=== PATIENT | male | born 1955 | race Caucasian/White ===

== ENCOUNTER 2018-10-11 14:46 | Inpatient (IN) | payer MEDICAID ==
[~2018-10-11] VITALS: Ht 195.5 cm; Wt 115.7 kg
--- NOTE | ~2018-10-11 | PR ---
[place], [place] PROGRESS NOTE NAME: EVITA SERVIN UNIT #: [id number] ROOM: 309 DOCTOR: CIELO SUÁREZ DPM BIRTHDATE: [birth year] DOS: 10/16/2018 SUBJECTIVE: This patient is seen for followup of an ulceration dorsal medial left arch. The patient has a history of chronic foot ulcers, history of surgery on his feet because of infections and osteomyelitis. Denies any pain at this time, the patient is diabetic. OBJECTIVE: NEUROLOGIC: Neurologic status is diminished, arterial status minimally decreased. EXTREMITIES: There is a large wound noted dorsal medial aspect of the left mid foot measuring about 6 x 3 cm with minimal maceration to the edges. No purulent drainage or malodor. Chronic edema is seen, but no active signs of infection. ASSESSMENT: Diabetic ulcer, left foot, diabetic neuropathy. PLAN: Evaluation and management. Continue offloading. Continue with daily wound care. Wound is not clinically infected at this time. Continue to offload. Continue to follow the patient while he is in house. CIELO SUÁREZ DPM CM:PNYVONNE [id number] CIELO SUÁREZ DPM 10/16/18 1446 interface
--- NOTE | ~2018-10-11 | PR ---
[place], [place] PROGRESS NOTE NAME: EVITA SERVIN UNIT #: [id number] ROOM: 309 DOCTOR: MAGDA NAJERA MD BIRTHDATE: [birth year] DOS: 10/14/2018 CHIEF COMPLAINT: "Oh, I slept well, I just need to find out about my living situation." SUMMARY OF THE VISIT: The patient was interviewed in the dining area. He had already completed his breakfast and was sitting there, watching television. He stopped and engaged in conversation with me. He reported that he slept very well, probably the best he has in a long time. He reports no side effects from the Anafranil. He did request that I do not increase it any further as he wants to see how this dose is working for him. He is concerned about his return to [facility] as to how long he will be there before they work to get him into his own home. He would like ultimately to have that as his goal and I discussed further with him the fact that we will send Sales Operations Associate in to talk to him about this to give him the accurate answers. MENTAL STATUS: He is alert and oriented. Mood does seem to be strongly trending towards euthymia. Affect is more appropriate. There is no rk or hypomania. There are no overt auditory or visual hallucinations. No delusions, no paranoia. Short term, intermediate and long-term memories are intact. PLAN: I will maintain his current psychotropic regimen, engage in individual and myers milieu activity, returning to the least restrictive environment when psychiatrically stable. MAGDA NAJERA MD CM:PNTRANS [phone] MAGDA NAJERA MD 10/14/18 172 interface
--- NOTE | ~2018-10-11 | PR ---
[place], [place] PROGRESS NOTE NAME: EVITA SERVIN UNIT #: [id number] ROOM: 309 DOCTOR: MAGDA SUN MD BIRTHDATE: [birth year] DOS: 10/13/2018 CHIEF COMPLAINT: "I slept really well Dr. Sun, I think the medicine already helped my sleep." SUMMARY OF THE VISIT: The patient was interviewed in the dining area. He engaged readily in conversation. He still remains very depressed and anxious with a lot of perseveration. However, on a positive note, he did report that the change to the clomipramine already seen to aid his sleep. He awoke this morning feeling refreshed without the hangover or somnolence. He did not notice any dry mouth, dizziness or any other side effects. MENTAL STATUS: He remains alert and oriented with some time gaps. Mood is overwhelmingly depressed. Affect is flat, blunted, and constricted. There was no hypomania or rk. There were no overt auditory or visual hallucinations. No delusions, no paranoia. Short term memory had mild gaps, otherwise he was intact. PLAN: I will increase the clomipramine from 50 to 100 mg at bedtime. Continue to monitor for risks, benefits. Continue to engage in individual and myers milieu activity, returning to the least restrictive environment when psychiatrically stable. MAGDA SUN MD CM:PNTRANS [phone] MAGDA SUN MD 10/13/18 1236 interface
--- NOTE | ~2018-10-11 | PR ---
[place], [place] PROGRESS NOTE NAME: EVITA SERVIN UNIT #: [id number] ROOM: 309 DOCTOR: MAGDA SUN MD BIRTHDATE: [birth year] DOS: 10/17/2018 CHIEF COMPLAINT: "I think I am really good Dr. Sun, I am ready to go soon." SUMMARY OF THE VISIT: The patient was interviewed as he was sitting in the dining area with a female peer. He engaged readily in conversation. He was bright and spontaneous. He reported yet again that he slept through the night and that this has been consistent since the medication changes were made. He does seem to be much more pleasant and positive. He is less perseverative and less anxious. He convincingly denies medication side effects. MENTAL STATUS: He is alert and oriented to person, place and time. Mood does seem to be solidly trending towards euthymia. Affect is much more appropriate. There is no rk, hypomania or psychosis. There is no tardive dyskinesia, extrapyramidal symptoms, sedation or somnolence. PLAN: I will maintain the current psychotropic regimen, continue to engage in individual and myers milieu activity, returning then to the least restrictive environment when psychiatrically stable. MAGDA SUN MD CM:PNTRANS [phone] MAGDA SUN MD 10/17/18 1032 interface
--- NOTE | ~2018-10-11 | DS ---
[place], [place] DISCHARGE SUMMARY NAME: EVITA SERVIN UNIT #: [id number] ROOM: 309 DOCTOR: MAGDA NAJERA MD BIRTHDATE: [birth year] DOS: 10/18/2018 CHIEF COMPLAINT: "Oh, I have been so depressed, I can't go on like this." HISTORY OF PRESENT ILLNESS: This is a 63-year-old white male known to me from previous [facility] admissions as well as his stay at [facility] and now most recently [facility]. The patient presents now with ongoing depression, worsening on a daily basis over the last month. He endorses significant neurovegetative symptoms that include poor sleep with difficulty falling asleep, sleep continuity disturbance, spooler awakening, anergia, anhedonia, hopeless, helpless feelings, crying spells, and inability to cope. He has had fleeting suicidal thoughts and feels his life is not worth living if he has to continue like this. He also has significant obsessive compulsive issues and tends to ruminate on things and his anxiety level then becomes debilitating. He is admitted now to rule out organic factors to attempt to stabilize on medication, to engage in individual and myers milieu activity, returning then to the least restrictive environment when psychiatrically stable. SUMMARY OF THE VISIT: The patient was admitted where he was continued on Klonopin, but I augmented this with Vistaril 50 mg 3 times a day as a nonaddicting antianxiety to help decrease his rumination. Abilify was discontinued due to ineffectiveness and he was started on Zyprexa 2.5 mg in the morning and 5 mg at night. He has Luvox likewise was discontinued due to ineffectiveness and he was started on clomipramine also known as Anafranil 50 mg at bedtime and subsequently increased to 100 mg at bedtime. With these changes, the patient noted a very rapid and gradual improvement to the point where he was sleeping well, eating well. His anxiety and rumination dissipated. He was no longer obsessive. He was able to attend to his ADLs and attend to groups well. His suicidal thoughts dissipated as well and he voiced positive plans for the future and was ready and willing to go back to [facility] to continue his care and attempt to reintegrate into the community. MENTAL STATUS AT DISCHARGE: The patient is alert and oriented to person, place and time. Mood does seem to be strongly trending towards euthymia. Affect is more appropriate. There is no rk or hypomania. There is no gross psychosis. Short, intermediate, and long-term memory is intact. DIAGNOSES UPON DISCHARGE: Major depression, recurrent, severe; obsessive compulsive disorder and dysthymic disorder. DISPOSITION: All of his prescriptions have been printed and will be sent with him. He will be readmitted to [facility] in [place], [place]. I will be the treating psychiatrist of record. At the time of discharge, there were no acute medical or acute psychiatric issues. [place], [place] DISCHARGE SUMMARY NAME: EVITA SERVIN UNIT #: [id number] ROOM: 309 DOCTOR: MAGDA NAJERA MD BIRTHDATE: [birth year] MAGDA NAJERA MD CM:DISCHARG [phone] MAGDA NAJERA MD 10/19/18 0020 interface
--- NOTE | ~2018-10-11 | WRIGHTHP ---
[place], [place] PATIENT HISTORY AND PHYSICAL EXAM [id number] UN[facility] #: [id number] ROOM: 309 DOCTOR: MAGDA NAJERA MD BIRTHDATE: [birth year] DOS: 10/12/2018 INITIAL PSYCHIATRIC EVALUATION CHIEF COMPLAINT: "Oh, I have been just so depressed, I can't go on like this." HISTORY OF PRESENT ILLNESS: This is a 63-year-old white male known to me from previous [facility] admissions as well as his stay at [facility] and now most recently [facility] in [place], [place]. The patient reports ongoing depression that has been worsening on a daily basis over the last month. He endorses significant neurovegetative symptoms that include poor sleep with difficulty falling asleep, sleep continuity disturbance, milk powder grinder awakening, anergia, anhedonia, hopeless, helpless feelings, crying spells, and inability to cope. He has had fleeting suicidal thoughts and has thought life is not worth living and that if this is how he has to live. He also has significant obsessive compulsive issues and tends to ruminate on things and be perseverative. His anxiety is free floating all during the day and is also quite debilitating. He is admitted now to rule out organic factors to stabilize on medication and to engage in individual and myers milieu activity. PAST MEDICAL HISTORY: Remarkable for atrial fibrillation, chronic kidney disease stage 3, major depression, recurrent, DVT, hypertension, GERD, hyperlipidemia, obesity, stasis dermatitis, vitamin D deficiency and nicotine abuse. The patient is a former smoker, having quit just in 08/2018. He does not use illicit drugs or drink alcohol. ALLERGIES: He lists no known allergies. STRENGTHS: Good verbal skills, ambulatory. WEAKNESSES: Chronic psychiatric issues, poor coping skills. MENTAL STATUS: He is alert and oriented to person, place, and time. Mood is overwhelmingly depressed. Affect is flat, blunted, and constricted with anxious overtones. There is no hypomania or rk. There is no gross psychosis. Short term, intermediate, and long-term memory for the most part are intact. DIAGNOSIS: Major depression, recurrent, severe; dysthymic disorder and obsessive compulsive disorder. PLAN: I have already augmented his Klonopin with Vistaril 50 mg 3 times a day. I will now discontinue his Luvox due to ineffectiveness and begin him on and off Anafrail 50 mg at bedtime and plan to rapidly titrate this up as needed and as tolerated. I have switched the Abilify to Zyprexa, believing that this would augment his antidepressant regimen more and improve sleep and appetite. I will utilize Rozerem short-term as a p.r.n. for sleep. We will engage him in individual and myers milieu activity, returning back to [facility] when medically and psychiatrically stable. [place], [place] PATIENT HISTORY AND PHYSICAL EXAM NAME: EVITA SERVIN UNIT #: [id number] ROOM: 309 DOCTOR: MAGDA NAJERA MD BIRTHDATE: [birth year] MAGDA NAJERA MD CM:HISPHYS:PATIENT HISTORY AND PHYSICAL EXAMINATION [id number] MAGDA NAJERA MD 11/15/18 1057 interface
--- NOTE | ~2018-10-11 | PR ---
[place], [place] PROGRESS NOTE NAME: EVITA SERVIN UNIT #: [id number] ROOM: 309 DOCTOR: MAGDA NAJERA MD BIRTHDATE: [birth year] DOS: 10/15/2018 CHIEF COMPLAINT: "I am feeling so much better, let's not tweak anything." SUMMARY OF THE VISIT: The patient was interviewed in the dining area where he was sitting with many female peers. He engaged readily in conversation, reporting that he slept well enough, and felt rested this morning. He ate a good breakfast and overall, his mood does seem to be more euthymic and he is much more positive. He reports no side effects from the medicines and feels that the current regimen is working well. He only requested that I start him back on a multivitamin with minerals, which he took well in the long-term care facility. MENTAL STATUS: He is alert and oriented with some time gaps. Mood does seem to be strongly trending towards euthymia. Affect is more appropriate. There is no rk, hypomania, or psychosis. Short-term memory, long-term memory, and intermediate memory are intact. PLAN: I will maintain his current psychotropic regimen. I will go ahead and add a multivitamin with minerals daily, engage in individual and myers milieu activities, returning to the least restrictive environment when psychiatrically stable. MAGDA NAJERA MD CM:PNTRANS [phone] MAGDA NAJERA MD 10/16/18 0350 interface
--- NOTE | ~2018-10-11 | PR ---
[place], [place] PROGRESS NOTE NAME: EVITA SERVIN UNIT #: [id number] ROOM: 309 DOCTOR: MAGDA NAJERA MD BIRTHDATE: [birth year] DOS: 10/16/2018 CHIEF COMPLAINT: "I just need a little rest. I think I'm doing better doc." SUMMARY OF THE VISIT: The patient was interviewed as he was resting quietly in bed. He engaged readily in conversation, reporting that he is sleeping better, eating better, and overall is feeling much better than when he came in. He convincingly denies medication side effects and once again requested that I leave his medicines as they are as he believes this dose is working for him and he does not need any more medicine than this. MENTAL STATUS: He is alert and oriented to person, place and time. Mood does seem to be strongly trending towards euthymia. Affect is more appropriate. There is no rk or hypomania. There is no gross psychosis. Short, intermediate, and long-term memory are intact. PLAN: I will maintain his current psychotropic regimen, engage in individual and myers milieu activity, returning to the least restrictive environment when psychiatrically stable. MAGDA NAJERA MD CM:PNTRANS [phone] MAGDA NAJERA MD 10/16/18 1400 interface
[~2018-10-11 14:46] MED LIST: BANOPHEN ANTI-I28 GM T; CLONAZEPAM1 MG PO; COUMADIN4 M2 PO; Coumadin2.5 MG PO; DILTIAZEM HYDRO60 MG PO; ENOXAPARIN120 MG/0.2 SC; FLUVOXAMINE MA150 M1 PO; FLUVOXAMINE50 MG PO; GLYBURIDE5 MG PO; HUMALOG100 UNIT/2 SQ; HYDROCHLOROTHIA25 M1 PO; HYDROXYZINE PAM25 M1 PO; Ipratropium Brom3 ML INH; JANUVIA100 MG PO; KLONOPIN1 M1 PO; LISINOPRIL30 MG PO; LOPRESSOR100 M1 PO; OHM ALLERGY REL10 MG PO; OLANZAPINE5 MG PO; PANTOPRAZOLE SO40 MG PO; SEROQUEL50 MG PO; THERA TABLET400 MCG PO; VISTARIL25 MG PO; ZOCOR20 MG PO; ZOFRAN ODT4 MG PO; ZYPREXA2.5 MG PO
[2018-10-11] MEDS ORDERED: ABILIFY5 MG PO (14:49)
[2018-10-11] MEDS ORDERED: VITAMIN C500 M8 PO (14:52)
[2018-10-11] MEDS ORDERED: COUMADIN6 M2 PO (14:55)
[2018-10-11] MEDS ORDERED: FLUVOXAMINE MA100 MG PO (14:58)
[2018-10-11] MEDS ORDERED: PROBIOTIC250 MG PO (15:01)
[2018-10-11] MEDS ORDERED: KLONOPIN0.5 MG PO (15:02)
[2018-10-11] MEDS ORDERED: APAP500 MG PO (15:04)
[2018-10-11] MEDS ORDERED: KLONOPIN1 M1 PO (15:05)
[2018-10-11] MEDS ORDERED: HYDROCODONE-AC1 EAC1 PO (15:06)
[2018-10-11] MEDS ORDERED: HYDROXYZINE HCL25 MG PO (15:07)
[2018-10-11] MEDS ORDERED: NYSTATIN T (15:09)
[2018-10-11] MEDS ORDERED: AQUAPHOR T (15:09)
[2018-10-11] MEDS ORDERED: LANTUS SOL100 UNIT/1 SC (15:11)
[2018-10-11] MEDS ORDERED: NICODERM CQ1 EAC1 T (15:13)
[2018-10-11] MEDS ORDERED: THERA-M1 EACH PO (15:15)
[2018-10-11] MEDS ORDERED: VITAMIN D22000 UNIT PO (15:16)
[2018-10-11 17:17] VITALS: BP 142/79
[2018-10-11 17:54] VITALS: BP 142/79
--- NOTE | 2018-10-11 18:19 | NUR ---
NURSING [facility]ORER [facility] [employer] NOTIFIED OF WOUND TO LEFT FOOT TO BE STAGED, STAGE 2. WOUND TO LEFT FOOT PHOTOGRAPHED, WOUND SCREEN COMPLETED, NUTRITION CONSULT PUT IN, TURN/REPOSITION COMPLETED, WOUND CARE CONSULT, REMA SCALE COMPLETE DR. JAMESON NOTIFIED OF NEW ADMISSION AND STAGE 2 WOUND TO LEFT FOOT. PER DR. JAMESON PUT CONSULT UNDER DR. ESCOBEDO. NO FURTHER ORDERS AT THIS TIME.
--- NOTE | 2018-10-11 18:23 | NUR ---
EVITA SERVIN a 63 year old M admitted via wheel chair from the [facility] as a voluntary admission. Arrived on unit at 1713 . ALLERGIES: NKA . Vital signs are: 98.0-92-18 142/79. The client signed the following forms with stated understanding: Authorization For The Release of Medical Information, Clothing List, Consent to Voluntary Admission and Hospitalization, Consent and Release Forms/Receipt of Rights, Acknowledgement of Advance Directive Information, Behavioral Health Consent Form, and Informed Consent of Medications. Admitted under the services of Dr. REINALDO AVINA,[facility]. A search was conducted and hazardous articles were removed. Client was oriented to the unit. JUS SERRATO PT ALERT TO PERSON, PLACE AND TIME. PT DEPRESSED AND TEARFUL AT TIMES. GOAL DIRECTED FOR TREATMENT. PT UP TO WHEELCHAIR D/T FOOT WOUND STATES "I DONT KNOW IF I'M SUPPOSED TO WALK ON IT BUT I DO SOMETIMES". PT CONTINENT OF BOWEL AND BLADDER. SOCIAL WORKJER UPDATED AT 5681 RE:PT ADMISSION AND VOLUNTARY STATUS.
[2018-10-11 20:00] VITALS: BP 117/76
--- NOTE | 2018-10-12 04:06 | NUR ---
24 HR chart check completed.
--- NOTE | 2018-10-12 05:45 | NUR ---
PT SLEPT APPROXIMATELY 7 HOURS THIS SHIFT. MEDICATION COMPLIANT. TEARFUL WHILE TALKING TO DR CAUSEY. NO SI/HI. A&O X3. DEPRESSED MOOD. Q15 MINUTE SAFETY CHECKS MAINTAINED.
--- NOTE | 2018-10-12 06:34 | NUR ---
EVITA SERVIN [id number] Please refer to the physician's history and physical for past medical history, comorbid conditions, and allergies. Diagnosis: MAJOR DEPRESSION RECURRENT W/ PSYCHOTIC FEATURES Darin Score: 19,LOW OR NO RISK WOUND DESCRIPTIONS: Location of the wound: left top of foot Thickness: Full Size: 7.0cm x 4.2cm x <0.1cm Tunneling: none Undermining: none Sinus Tract: none Presence of Exudate: Serosanguineous Amount: Moderate Color: Yellow, red Odor: Foul Periwound Skin Appearance: Erythema, macerated Wound edges: approximated Pain (associated with wound): tender to touch How does patient state this happened? pt stated he has had this for 6 months and follows with the foot doctor at the assisted. Patient has intact scar intact to left buttocks. No open areas noted. No drainage noted. Patient stated that he has had that for a while and it has been healed. Patient has multiple partial thickness areas to BLE's patient states he scratches them due to them being itchy. No drainage noted at time of assessment. Surface the patient is resting on: Proform SKIN PREVENTION RECOMMENDATION: 1. Pressure redistribution support surface as appropriate 2. Elevate heels 3. Remove boots/TEDS every shift and reapply 4. Head of bed 30 degrees as tolerated 5. Assess nutrition and hydration 6. Manage moisture 7. Avoid the use of containment devices while in bed 8. Use absorptive products on surfaces limit layers of linens on bed 9. Turn and reposition every 1-2 hours in bed and every 1 hour in chair as tolerated 10. Weight shifts every 15 minutes while up in chair 11. Offloading with pillows or device to keep heels elevated off bed 12. Monitor skin at least every shift 13. Inspect under medical devices twice a day WOUND TREATMENT RECOMMENDATIONS: Cleanse bilateral lower extremity with soap and water and apply aquaphor ointment daily. Cleanse left buttocks with soap and water and apply hydraguard every shift and prn. Full thickness guidelines: Cleanse left top of foot with nss and apply sureprep around the wound therahoney to wound bed and cover with maxorb then 4x4 then lightly wrap with rolled gauze daily and prn for soiling. Venous and arterial studies due to non healing wound of left foot. Left foot x-ray due to non-healing wound to left foot. Consult podiatry due to non-healing wound to top of left foot and possible debridement. Wheelchair cushion when oob. Heel raiser pro boots while in bed.
--- NOTE | 2018-10-12 06:34 | NUR ---
DURING ASSESSMENT WITH WOUND NURSEHOMER, A SCAR WAS NOTED TO LEFT BUTTOCKS.
[2018-10-12 06:47] LABS: BASO # 0.1 10*3/uL (0.0-0.1); BASO % 0.8 % (0.0-1.0); EOS # 0.3 10*3/uL (0.0-0.4); EOS % 3.2 % (1.0-4.0); HEMATOCRIT 38.2 % (42.0-52.0); HEMOGLOBIN 11.8 g/dl (14.0-18.0); LYMPH # 2.2 10*3/uL (1.3-4.4); LYMPH % 23.7 % (27.0-41.0); MEAN CELL VOLUME 72.5 fl (80.0-94.0); MEAN CORPUSCULAR HGB 22.4 pg (27.0-31.0); MEAN CORPUSCULAR HGB CONC 30.9 g/dl (33.0-37.0); MEAN PLATELET VOLUME 9.3 fl (9.6-12.3); MONO # 0.8 10*3/uL (0.1-1.0); MONO % 9.2 % (3.0-9.0); NEUT # 5.7 10*3/uL (2.3-7.9); NEUT % 62.8 % (47.0-73.0); PLATELET COUNT AUTOMATED 294 10*3/uL (130-400); RED BLOOD COUNT 5.27 10*6/uL (4.50-5.90); RED CELL DISTRI WIDTH 20.8 % (0-14.5); WHITE BLOOD COUNT 9.1 10*3/uL (4.8-10.8)
[2018-10-12 06:59] LABS: INTERNATIONAL NORM RATIO 1.8 (2.0-3.5)
[2018-10-12 07:03] LABS: ALBUMIN 2.6 gm/dl (3.1-4.5); CHLORIDE 107 mmol/L (98-107); POTASSIUM 4.3 mmol/L (3.5-5.1); SODIUM 140 mmol/L (136-145)
[2018-10-12 07:18] LABS: ALKALINE PHOSPHATASE 99 U/L (45-117); BUN 31 mg/dl (7-24); CHOLESTEROL 219 mg/dL (<200); CREATININE 1.43 mg/dL (0.70-1.30); HDL CHOLESTEROL 31 mg/dl (40-60); SGOT/AST 18 IU/L (3-35); SGPT/ALT 28 U/L (12-78); TOTAL PROTEIN 6.6 gm/dL (6.4-8.2); TRIGLYCERIDES 910 mg/dl (<150)
[2018-10-12 07:37] VITALS: BP 116/71
--- NOTE | 2018-10-12 08:15 | NUR ---
Treatment Plan meeting with Dr. Sun, RN, AT, SW and Audit Practice Intern. Plan for discharge Next week, Possible or Tuesday. Pt. is current Resident of [facility]. Will reach out to facility to discuss discharge Plans.
--- NOTE | 2018-10-12 08:44 | NUR ---
Dr. Staley notified of wound care recommendations.
[2018-10-12 09:00] LABS: VITAMIN D, 25-HYDROXY 16.9 ng/mL (30-100)
--- NOTE | 2018-10-12 09:15 | NUR ---
PHYSICAL THERAPY PAtient evaluated on 3, full evaluation to follow. Continue with PT as per plan of care with fall, left foot wound, ambulate with left foot boot and decreased safety awareness precautions. Multiple loses of balance with evaluation especially with turns and changes in direction, staff advised to (A) with mobility at this time. Return to LTC with PT as prior. Patient is moderate compleity via chart review, tests and evaluation: [id number]. Thank you for this referral. Geraldine Nielsen,PT
--- NOTE | 2018-10-12 09:25 | NUR ---
Occupational Therapy evaluation completed on 3 with full eval to follow. Patient is low complexity level 02105 via chart review, testing and evaluation. Recommend no further OT as patient is able to perform self care but needs improved balance with ww. PT to address standing balance and ww safety. Thank you. Emmanuelle Tejeda OTR/L
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
--- NOTE | 2018-10-12 12:00 | NUR ---
ASSEMBLER BODY AND RESIDENT ON UNIT AT THIS TIME TO ASSESS WOUND TO TOP LEFT FOOT AND APPLY DRESSING.
--- NOTE | 2018-10-12 12:11 | NUR ---
Collaborated with tx team and later senior program planner regarding plan for pt to receive therapy weekly once back in facility. Pt has been hospitalized 3 times in last 32 days since he has been at [facility]. Provided support and encouragement to pt who was tearful at times. Per pt request, [place]-pt old neighbor was notified of pts admission. Pt also expressed his feelings. PSA completed. Pt said he felt reassured about getting counseling once he returns on a regular basis. Pt stated he misses his home and dog and wants to be able to go back. Seems somewhat unrealistic upon discussion with senior program planner who heard from DON though.
--- NOTE | 2018-10-12 13:00 | NUR ---
PT IS ALERT. ORIENTED TO PERSON, PLACE, AND TIME. PT ST MEMORY DEFICITS APPARENT PT REPEATEDLY ASKS WHAT THIS NURSE'S NAME IS. PT IS UNSTEADY ON HIS FEET. PT PROVIDED WITH VERBAL REORIENTATION. PHYSICAL THERAPY ON UNIT TO ASSESS PT. PT STATES "OH YEAH, I REMEMBER NOW" AND PROVIDED VERBAL CONTEXT OF PREVIOUS REORIENTATION. PHYSICAL THERAPY STATES THAT PT IS UNSTEADY WITH CHANGES OF DIRECTION AND TURNING. PT ENCOURAGED TO USE WHEELCHAIR FOR AWHILE, PT AGREEABLE. PLAN TO CONTINUE TO REORIENT PT NEEDED. PLAN TO MAINTAIN FALLING STAR PROGRAM FOR SAFETY. ENCOURAGE CONTINUED MEDICATION COMPLIANCE.
[2018-10-12 13:07] LABS: BILIRUBIN NEGATIVE (NEGATIVE); BLOOD 2+ (NEGATIVE); CLARITY CLEAR (CLEAR); COLOR YELLOW (YELLOW); GLUCOSE TRACE (NEGATIVE); KETONE NEGATIVE (NEGATIVE); LEUKO ESTERASE NEGATIVE (NEGATIVE); NITRITE NEGATIVE (NEGATIVE); SPECIFIC GRAVITY 1.025 (1.005-1.030); UROBILINOGEN 0.2 E.U./dl (0.2-1.0)
--- NOTE | 2018-10-12 13:08 | NUR ---
AM GROUP/EXERCISE AND PARACHUTE PT ATTENDED AND PARTICIPATED IN ALL GROUP ACTIVITIES. PT EXPRESSED NO AGITATION OR DEPRESSIVE IDEATIONS DURING GROUP. PT WAS COOPERATIVE AND LAUGHING DURING GROUP.
[2018-10-12 13:24] LABS: BACTERIA 1+; RBC 41-50 rbc/hpf (0-2)
--- NOTE | 2018-10-12 13:36 | NUR ---
PT REQUESTING PRN PAIN MEDICATION AT THIS TIME FOR PAIN TO LEFT FOOT RATED "8/10". PT GIVEN NORCO PER ORDER AT THIS TIME.
--- NOTE | 2018-10-12 14:43 | NUR ---
case management submitted clinical on line, reference number is [id number],
--- NOTE | 2018-10-12 15:47 | NUR ---
PM GROUP/MEDITATION AND THE 5 SENSES PT ATTENDED AND PARTICIPATED IN ALL GROUP ACTIVITIES UNTIL HE WAS REMOVED FROM THE ROOM TO SEE A DR AND NOT RETURNED. PT EXHIBITED NO DEPRESSIVE OR AGITATED SYMPTOMS DURING GROUP
--- NOTE | 2018-10-12 16:30 | NUR ---
PT REPORTS NORCO ONLY SOMEWHAT EFFECTIVE. PT ENCOURAGED TO TAKE TAKE WEIGHT OFF FOOT AND REST IT.
--- NOTE | 2018-10-12 19:51 | NUR ---
24 HR chart check completed.
[2018-10-12 20:00] VITALS: BP 101/66
[2018-10-12 20:29] VITALS: BP 112/66
--- NOTE | 2018-10-12 21:20 | NUR ---
PT C/O FOOT PAIN WITH A PAIN SCORE OF 7/10. REQUESTED PRN PAIN PILL. PRN NORCO GIVEN AT THIS TIME. WILL MONITOR PAIN.
--- NOTE | 2018-10-12 22:10 | NUR ---
prn norco effective. pt quietly resting in bed. will continue to monitor effectiveness of medication.
--- NOTE | 2018-10-13 03:32 | NUR ---
Recommend follow up for wound care in outpatient setting patient being discharge to another facility at this time.
--- NOTE | 2018-10-13 05:58 | NUR ---
NO ADVERSE MOODS OR BEHAVIORS NOTED. PT SLEPT APPROXIMATELY 8 HOURS THIS SHIFT. Q15 MINUTE SAFETY CHECKS MAINTAINED. A&O X3. ORGANIZED AND GOAL DIRECTED. INTERACTIVE WITH PEERS AND STAFF. NO TEARFUL EPISODES NOTED. NO HALLUCINATIONS/DELUSIONS NOTED. NO SI/HI NOTED.
[2018-10-13 07:35] VITALS: BP 148/78
--- NOTE | 2018-10-13 07:39 | NUR ---
Spoke with Dr. Garcia regarding x-rays results he stated he is going to wait until he rounds with his attending to see if they are going to order the MRI or not since this patient they have been following and has a bone biospy in this particular area she stated to go ahead and put the dressing order in per his treatment plan.
--- NOTE | 2018-10-13 07:45 | NUR ---
PT AWAKE, ALERT, CONVERSANT WITH STAFF, WAITING FOR BREAKFAST IN DINING ROOM.
--- NOTE | 2018-10-13 08:08 | NUR ---
ON UNIT TO SEE PT AT THIS TIME, UPDATE GIVEN.
--- NOTE | 2018-10-13 08:15 | NUR ---
Treatment Plan meeting with Dr. Sun, RN, AT, SW and Technology Recruiter. Plan for discharge Mid to Late Next week. Pt. to return to [facility].
--- NOTE | 2018-10-13 08:50 | NUR ---
PHYSICAL THERAPY Patient presented to therapy in wheelchair in activity room with report of feeling pretty good tokierra romero feeling a little stronger. Patient reports the the wound on his R foot is on the dorsum side of the foot. Patient agrees to therapy session. Patient was identified by name and . Patient was wheeled out to hallway in front of Nurses station on 3 rd floor. Two receptioniists were working at the desk as witnesses to patient's treatment. Physical Therapist Fork Assembler BOB CARDENAS was present as witness to this LABORATORY SAMPLE CARRIER treating Patient Carlos Chandra on 3 rd floor U. Patient performed STS transfer with CGA X 1. Patient ambulated with Close Supervision and no assistive device and using the hallway railing on the L SIDE of hallway when needed for 75' x 1. LABORATORY SAMPLE CARRIER BOB CARDENAS PUSHED WHEELCAHIR behind patient as he ambulated. Patient sat in wheelchair and performed seated bilateral LE ther ex 2 x 10 reps each in all planes of movement for strengthening the LEs in order to improve patient's functional mobility. Patient then performed standing balance exercise EO/EC 1 MIN. EACH with SBA to CGA. Patient required MIN A X 1 , 2 SEPERATE TIMES FOR LOB. Patient prerformed standing dynamic exercise reaching for objects in different planes in order to challenge balance for 1 minute. Patient tolerated treatment well and demonstrated improving endurance, gait, and balance. Balance appears to be his most difficult challenge. Patient was left in wheelchair in activity room with RN NURSE present and with other patients at table in activity room. Patient was 1:1 with this LABORATORY SAMPLE CARRIER for 23 minutes total. UMESH SALVADOR LABORATORY SAMPLE CARRIER
--- NOTE | 2018-10-13 08:52 | NUR ---
PT GIVEN PRN NORCO ONE TAB PO AT 0852 PER PT REQUEST FOR C/O PAIN TO LEFT FOOT RATED TO LEFT FOOT RATED LEVEL 8/10 ON PAIN SCALE. WILL MONITOR FOR EFFECTIVENESS.
--- NOTE | 2018-10-13 09:52 | NUR ---
Dr. graf notified of wound care recommendations.
--- NOTE | 2018-10-13 10:00 | NUR ---
PT STATES NORCO EFFECTIVE FOR PAIN RELIEF.
--- NOTE | 2018-10-13 10:20 | NUR ---
, PODIATRY RESIDENT ON UNIT TO SEE PT AT THIS TIME, DRESSING CHANGE TO LEFT FOOT COMPLETED BY AT THIS TIME.
--- NOTE | 2018-10-13 10:34 | NUR ---
AND ON UNIT TO SEE PT AT THIS TIME.
--- NOTE | 2018-10-13 10:45 | NUR ---
Updates faxed to [facility] Attn:
[2018-10-13] MEDS ORDERED: ABILIFY5 MG PO (11:05)
[2018-10-13] MEDS ORDERED: FLUVOXAMINE MAL25 MG PO (11:11)
[2018-10-13] MEDS ORDERED: KLONOPIN1 M1 PO (11:14)
[2018-10-13] MEDS ORDERED: HYDROXYZINE HCL25 MG PO (11:16)
--- NOTE | 2018-10-13 11:30 | NUR ---
Talisha Whaley LPN electrical engineering director for [facility] here to see patient for Onsite Assessment. Provided with Clinical Updates. Information faxed to [facility].
--- NOTE | 2018-10-13 11:45 | NUR ---
AM GROUP/THERAPY DOG VISIT PT ATTENDED AND PARTICIPATED IN THE VISIT FROM "REENA". PT WAS VERY GRATEFUL TO HAVE MET HER. PT EXIBITED NO ANXIETY OR DEPRESSIVE SYMPTOMS DURING GROUP.
--- NOTE | 2018-10-13 11:45 | NUR ---
ON UNIT TO SEE PT AT THIS TIME.
--- NOTE | 2018-10-13 12:51 | NUR ---
P- STABLE MOOD NOTED THIS DATE, ST MEMORY GAPS OBSERVED PT FREQUENTLY FORGETTING THIS NURSE'S NAME DESPITE MULTIPLE INTRODUCTIONS AND REMINDERS. PT STATES "I FEEL GREAT. I'M DOING MUCH BETTER". I- ORIENTATION, MOOD AND BEHAVIOR ASSESSED. REDIRECTION AND 1:1 PROVIDED NEEDED. ASSESSED PT FOR SI/HI, INTENT OR PLAN. ASSESSED PT FOR S/S INTERNAL STIMULI, PARANOIA AND/OR DELUSIONS. MEDICATIONS ADMINISTERED PER PHYSICIAN'S ORDERS. ENCOURAGED PT TO ATTEND AND PARTICIPATE IN JIMÉ[facility] MILIE[facility] GROUPS AND ACTIVITIES. R- PT IS ALERT AND ORIENTED X4. ST MEMORY GAPS NOTED. RESPS EASY AND EVEN ON ROOM AIR. PT DENIES SI/HI, INTENT OR PLAN. PT DENIES HALLUCINATIONS, NO RESPONSE TO INTERNAL STIMULI NOTED. NO EVIDENCE OF PARANOIA AND/OR DELUSIONS NOTED. PT IS MEDICATION COMPLIANT WITHOUT DIFFICULTY. POSITIVE INTERACTIONS WITH BOTH STAFF AND PEERS NOTED. PT ATTENDED GROUP FOR PET THERAPY THIS MORNING. P- PLAN TO CONTINUE CURRENT TX, CONTINUE TO MONITOR MOOD AND BEHAVIORS, PROVIDE REDIRECTION, 1:1 AND REORIENTATION NEEDED. CONTINUE TO ENCOURAGE MEDICATION COMPLIANCE WELL GROUP ATTENDANCE AND PARTICIPATION.
--- NOTE | 2018-10-13 13:20 | NUR ---
PT REQUESTED PRN NORCO, ADVISED PT IT IS ORDERED EVERY 6 HOURS NEEDED AND ISN'T DUE TO BE GIVEN UNTIL 1458. PT C/O PAIN TO LEFT FOOT, NOT RATED ON PAIN SCALE, PT STATES "IT'S NOT CONSTANT. IT COMES AND GOES BUT WHEN IT COMES IT'S PRETTY STRONG". REVIEWED PRN ORDERS WITH PT. PT GIVEN PRN TYLENOL ES 500MG ONE TAB PO AT THIS TIME FOR LEFT FOOT PAIN, WILL MONITOR FOR EFFECTIVENESS.
--- NOTE | 2018-10-13 14:25 | NUR ---
TYLENOL HAS BEEN EFFECTIVE, PT OFFERS NO FURTHER COMPLAINTS AT THIS TIME.
--- NOTE | 2018-10-13 15:34 | NUR ---
BINGO! PT ATTENDED AND PARTICIPATED IN BINGO. PT WAS VERY HELPFUL TO PEERS. PT EXHIBITED NO AGITATION OR SIGNS OF DEPRESSION DURING GROUP.
--- NOTE | 2018-10-13 16:31 | NUR ---
SHIFT CHART CHECK COMPLETED.
[2018-10-13 20:00] VITALS: BP 116/72
--- NOTE | 2018-10-13 22:16 | NUR ---
NO ADVERSE MOODS OR BEHAVIORS NOTED. MEDICATION COMPLIANT WITHOUT DIFFICULTY. MEDICATION EDUCATION PROVIDED REGARDING NEW MEDICATIONS. INTERACTIVE WITH STAFF AND PEERS. NO HALLUCINATIONS OR DELUSIONS NOTED. NO SI/HI NOTED. ORGANIZED AND GOAL DIRECTED. Q15 MINUTE SAFETY CHECKS MAINTAINED. NO C/O PAIN AT THIS TIME. WILL CONTINUE TO MONITOR FOR S/S OF PAIN. SEE [facility] FLOWSHEET FOR SPECIFIC MONITORING.
--- NOTE | 2018-10-14 01:39 | NUR ---
24 HR chart check completed.
--- NOTE | 2018-10-14 05:34 | NUR ---
PT SLEPT APPROXIMATELY 7 HOURS THIS SHIFT. Q15 MINUTE SAFETY CHECKS MAINTAINED.
[2018-10-14 07:33] VITALS: BP 122/78
--- NOTE | 2018-10-14 07:45 | NUR ---
PT AWAKE, ALERT, CONVERSANT WITH STAFF AND PEERS IN DINING ROOM WAITING FOR BREAKFAST.
--- NOTE | 2018-10-14 08:25 | NUR ---
ON UNIT TO SEE PT AT THIS TIME, UPDATE GIVEN.
--- NOTE | 2018-10-14 09:02 | NUR ---
PT REQUESTED AND WAS GIVEN PRN NORCO ONE TAB PO AT 0902 PER C/O LEFT FOOT PAIN RATED LEVEL 8/10 UNRELIEVED BY NONPHARMALOGICAL MEASURES. WILL MONITOR FOR MEDICATION EFFECTIVENESS.
--- NOTE | 2018-10-14 10:20 | NUR ---
NORCO HAS BEEN EFFECTIVE, PT OFFERS NO FURTHER COMPLAINTS AT THIS TIME. CURRENTLY PARTICIPATING IN MORNING GROUP.
--- NOTE | 2018-10-14 10:50 | NUR ---
ON UNIT TO SEE PT AT THIS TIME.
--- NOTE | 2018-10-14 11:46 | NUR ---
AM GROUP/EXERCISES/ART/MUSIC PT ATTENDED AND PARTICIPATED. PT ENTHUSASTIC AND PLEASANT WITH STAFF AND PEERS.PT DID NOT BECOME AGITATED OR "WEEPY" AT THIS TIME. PT WILL CONTINUE TO ATTEND AND PARTICIPATE IN FUTURE GROUP SESSIONS.
--- NOTE | 2018-10-14 13:59 | NUR ---
P- STABLE MOOD. PT STATES "I FEEL GOOD, THIS MEDICATION IS WORKING PERFECTLY FOR ME". I- ORIENTATION, MOOD AND BEHAVIOR ASSESSED. ASSESSED PT FOR SI/HI, INTENT OR PLAN. ASSESSED PT FOR S/S HALLUCINATIONS, PARANOIA AND/OR DELUSIONS. MEDICATIONS ADMINISTERED PER PHYSICIAN'S ORDERS. ENCOURAGED PT TO ATTEND AND PARTICIPATE IN [facility]IM[facility] MIL[facility] GROUPS AND ACTIVITIES. R- PT IS ALERT AND ORIENTED X4. MEMORY APPEARS TO BE LARGELY INTACT, MILD ST MEMORY GAPS NOTED. RESPS EASY AND EVEN ON ROOM AIR. MOOD IS STABLE, AFFECT APPROPRIATE. SPEECH IS WNL AND COHERENT, ABLE TO MAKE NEEDS KNOWN WITHOUT DIFFICULTY. PT DENIES SI/HI, INTENT OR PLAN. PT DENIES HALLUCINATIONS, NO RESPONSE TO INTERNAL STIMULI NOTED. PT IS MEDICATION COMPLIANT WITHOUT DIFFICULTY. PT IS CALM, PLEASANT AND COOPERATIVE, POSITIVE INTERACTIONS NOTED WITH BOTH PEERS AND STAFF. PT ATTENDED MORNING GROUP. P- PLAN TO CONTINUE CURRENT TX, CONTINUE TO MONITOR MOOD AND BEHAVIORS, PROVIDE APPROPRIATE REORIENTATION, REDIRECTION AND 1:1 NEEDED. CONTINUE TO ENCOURAGE MEDICATION COMPLIANCE WELL GROUP ATTENDANCE AND PARTICIPATION.
--- NOTE | 2018-10-14 18:51 | NUR ---
SHIFT CHART CHECK COMPLETED.
--- NOTE | 2018-10-14 18:53 | NUR ---
PRN TYLENOL 650MG PO GIVEN AT THIS TIME PER PT REQUEST FOR C/O GENERALIZED PAIN, UNRELIEVED BY NONPHARMALOGICAL MEASURES/REPOSITIONING. WILL MONITOR FOR EFFECT OF MEDICATION.
[2018-10-14 19:38] VITALS: BP 134/75
--- NOTE | 2018-10-14 21:44 | NUR ---
Medicated with [place] po prn given for c/o generalized discomfort. Will monitor effectiveness. No adverse behaviors or moods noted at this time. Pt.compliant with medication without difficulty. No SI/HI noted. No hallucinations or delusions noted at this time. Medication education provided with patient. Q 15 minute safety checks continued and maintained. See [facility] flowsheet for specific monitoring.
--- NOTE | 2018-10-15 01:11 | NUR ---
24 HR chart check completed.
--- NOTE | 2018-10-15 05:57 | NUR ---
Patient slept approx. 5 1/2 hours throughout shift.
[2018-10-15 06:36] LABS: INTERNATIONAL NORM RATIO 2.1 (2.0-3.5)
[2018-10-15 07:21] VITALS: BP 134/84
--- NOTE | 2018-10-15 12:58 | NUR ---
ON UNIT TO SEE PT AT THIS TIME, UPDATE GIVEN. AWARE OF PT/INR RESULTS.
--- NOTE | 2018-10-15 16:16 | NUR ---
PM GROUP/LEISURE SKILLS PT ATTENDED AND PARTICIPATED DURING GROUP. PT TALKATIVE WITH STAFF AND PEERS. PT PLEASANT AND ON TASK. PT DID NOT BECOME AGITATED OR "WEEPY" AT THIS TIME. PT WILL CONTINUE TO ATTEND AND PARTICIPATE IN FUTURE GROUP SESSIONS.
--- NOTE | 2018-10-15 16:26 | NUR ---
P- STABLE MOOD. I-ORIENTATION, MOOD AND BEHAVIOR ASSESSED. ASSESSED FOR SI/HI. INTENT OR PLAN. ASSESSED FOR S/S HALLUCINATIONS AND/OR DELUSIONS. MEDICATIONS ADMINISTERED PER PHYSICIAN'S ORDERS. ENCOURAGE PT TO PARTICIPATE IN GROUPS AND ACTIVITIES. R- PT ALERT AND ORIENTED X4. MEMORY INTACT. MOOD IS STABLE. AFFECT APPROPRIATE. SPEECH IS WNL AND COHERENT. PT DENIES SI/HI, INTENT OR PLAN. PT DENIES HALLUCINATIONS AND/OR DELUSIONS. NO RESPONSE TO INTERNAL STIMULI NOTED. PT IS MEDICATION COMPLIANT WITHOUT DIFFICULTY. PT ATTENDS AND PARTICIPATES IN GROUPS. POSITIVE INTERACTION WITH STAFF AND PEERS. P- CONTINUE CURRENT TREATMENT, CONTINUE TO MONITOR MOODS AND BEHAVIORS, PROVIDE APPROPRIATE ORIENTATION, REDIRECTION AND 1-1 NEEDED. CONTINUE TO ENCOURAGE MEDICATION COMPLIANCE WELL GROUP ATTENDANCE AND PARTICIPATION.
--- NOTE | 2018-10-15 17:44 | NUR ---
SHIFT CHART CHECK COMPLETED.
--- NOTE | 2018-10-15 17:55 | NUR ---
PRN TYLENOL 650MG PO GIVEN AT THIS TIME PER PT REQUEST FOR C/O GENERALIZED DISCOMFORT, UNRELIEVED BY REPOSITIONING AND NONPHARMALOGICAL MEASURES. WILL MONITOR FOR EFFECTIVENESS.
--- NOTE | 2018-10-15 18:50 | NUR ---
TYLENOL HAS BEEN EFFECTIVE OF THIS TIME, PT OFFERS NO FURTHER COMPLAINTS.
[2018-10-15 19:48] VITALS: BP 125/79
--- NOTE | 2018-10-15 21:52 | NUR ---
PATIENT USING VULGAR LANGUAGE WITH THIS NURSE DEMANDING THAT THIS NURSE STOP PASSING MEDICATIONS WITH ANOTHER PATIENT AND GIVE HIM HIS MEDICATION. THIS NURSE INFORMED PATIENT HIS NURSE HAD HIS MEDICATION. PATIENT YELLED AT THIS NURSE AND SAID "THIS IS BULLSHIT. YOU SAID YOU HAVE MY MEDICATION." THIS NURSE INFORMED PATIENT THAT HIS BEHVAVIOR WAS INAPPROPRIATE. PATIENT SOUGHT OUT HIS NURSE FOR MEDICATIONS. THIS NURSE ENCOURAGED PATIENT TO WORK ON THERPEUTIC COMMUNICATION TO HELP COPE THE EPISODES OF AGITATION AND ANXIETY. PATIENT AGREED HE WOULD WORK ON HIS AGITATION AND PATIENT APOLOGIZED TO THIS NURSE FOR INAPPROPRIATE BEHAVIOR
--- NOTE | 2018-10-15 22:27 | NUR ---
24 HR chart check completed.
--- NOTE | 2018-10-15 22:44 | NUR ---
HS BEDSIDE GLUCOSE 300. PT REQUESTED & MEDICATED WITH NORCO 1 TAB AT 2159 FOR C/O LEFT FOOT & LEG PAIN. RATED PAIN 9/10.
--- NOTE | 2018-10-15 22:49 | NUR ---
P-POOR IMPULSE CONTROL I-REDIRECT, PROVIDE EMOTIONAL SUPPORT, ADMINISTER MEDS, MONITOR SLEEP R-PT IS ALERT & ORIENTED X 4. OVERALL MOOD HAS BEEN PLEASANT. PT DID HAVE POOR IMPULSE CONTROL & HAD A VERBAL OUTBURST WITH CURSING DIRECTED AT ANOTHER RN & DEMANDING HIS MEDICATIONS. PT DID SPEAK TO THIS RN & WAS APOLOGETIC FOR HIS BEHAVIOR & DID APOLOGIZE TO OTHER NURSE. WHILE PT WAS SPEAKING TO OTHER NURSE HE BECAME TEARFUL. COMPLIANT TAKING HIS MEDICATIONS. P-CONTINUE TO PROVIDE PHYSICAL ASSISTANCE & EMOTIONAL SUPPORT NEEDED.
--- NOTE | 2018-10-16 04:26 | NUR ---
NORCO HAS BEEN EFFECTIVE & PT WAS NOTED TO SLEEP PAST 2229.
--- NOTE | 2018-10-16 06:29 | NUR ---
AM BEDSIDE GLUCOSE 232
[2018-10-16 07:11] VITALS: BP 124/76
--- NOTE | 2018-10-16 08:00 | NUR ---
TREATMENT PLAN MEETING WITH DR. NAJERA, RN, AT, SW AND CONFIGURATION DEVELOPER. PLAN FOR DISCHARGE TUESDAY. PT. IS TO RETURN TO [facility].
--- NOTE | 2018-10-16 08:35 | NUR ---
PHYSICAL THERAPY Patient was sleeping this am when first approached for therapy visit and upon second attempt stated he did not want to get up yet. Patient remained in bed under [facility] staff Supervision and will continue per POC as able. Jairo Campa, AVIONICS INSTALLER
--- NOTE | 2018-10-16 10:37 | NUR ---
SPOKE WITH LAVELLE IN ADMISSIONS. ADVISED OF PLANS TO DISCHARGE TUESDAY. UPDATES FAXED TO [facility] ATTN: LAVELLE.
--- NOTE | 2018-10-16 10:43 | NUR ---
PATIENT IS ALERT AND ORIENT TO PERSON, PLACE, TIME AND SITUATION; ABLE TO VOICE NEEDS. MOOD IS STABLE. DENIES ANY HALLUCINATIONS, DELUSIONS, HI/SI OR PAIN. ORGANIZED AND GOAL DIRECTED. INDEPENDENT WITH ACTIVITIES OF DAILY LIVING, CONTINENT OF BOWEL AND BLADDER. SET UP FOR MEALS, INTAKES ARE GOOD WITH ADEQUATE FLUIDS. SELF PROPELS IN WHEELCHAIR. PATIENT INTERACTIVE WITH STAFF AND OTHER PATIENTS. PARTICIPATED IN GROUP SESSION. MEDICATION COMPLAINT WITH EDUCATION PROVIDED. Q 15 MINUTE SAFETY CHECKS MAINATINED. CONTINUE TO MONIITOR FOR MOOD AND OUTBURST. PROVIDE ONE ON ONE AND REDIRECTION.
--- NOTE | 2018-10-16 11:08 | NUR ---
DR. RUEDA ON UNIT TO ASSESS PATIENT.
--- NOTE | 2018-10-16 11:42 | NUR ---
AM GROUP/PARCHUTE/FOCUS PT ATTENDED AND PARTICIPATED. PT PLEASANT AND ON TASK WITH NO AGITATION OR "WEEPY" BEHAVIOR. PT WILL CONTINUE TO ATTEND AND PARTICIPATE IN FUTURE GROUP SESSIONS.
--- NOTE | 2018-10-16 12:10 | NUR ---
DR. SUÁREZ ON UNIT TO ASSESS PATIENT'S FOOT.
--- NOTE | 2018-10-16 12:40 | NUR ---
PHYSICAL THERAPY Patient seen this pm for therapy visit and was sitting in activity room w/c upon therapist arrival. [facility] staff member present for observation only during HEALTH NURSE visit this afternoon. Patient voices no new c/o's at this time and performed several sit to stand transfers at rail with Min/CGA. Patient completed several standing balance ex including eyes open / closed, 90 / 180 degree turns and single leg stance. Patient demonstrated LOB x 2 during eyes closed ex and unable to tolerate single leg stance without single UE support. Patient also ambulated with use of single hand rail, CGA, 50'x 3, demonstrating both decreased stride / heel strike. Patient also with increased gait velocity which contributes to unsteady gait pattern at times. Patient returned to his w/c in activity room and remained under [facility] staff Supervision. Will continue per POC as tolerated to improve standing balance and smoother gait pattern to prevent risk of falls. Total treatment time 18 minutes. Jairo Campa, HEALTH NURSE
--- NOTE | 2018-10-16 14:31 | NUR ---
Collaborated with tx team regarding pt progress and plan. Pt appeared content and engaged in greeting exchange and stated he had no needs at this time.
--- NOTE | 2018-10-16 15:48 | NUR ---
PM GROUP/LEISURE SKILLS PT ATTENDED AND PARTICIPATED DURING GROUP. PT ON TASK AND PLEASANT. PT WILL CONTINUE TO ATTEND AND PARTICIPATE IN FUTURE GROUP SESSIONS.
--- NOTE | 2018-10-16 17:26 | NUR ---
Shift chart check completed.
[2018-10-16 19:56] VITALS: BP 139/88
--- NOTE | 2018-10-16 21:21 | NUR ---
24 HR chart check completed.
--- NOTE | 2018-10-16 21:35 | NUR ---
REQUESTED & MEDICATED WITH NORCO 1 TAB @ 2311 FOR C/O LEFT LEG PAIN. RATED PAIN 9/10.
--- NOTE | 2018-10-16 21:48 | NUR ---
PT IS STABLE. MOOD IS PLEASANT & CO-OPERTATIVE. NO VERBAL OUTBURSTS OR CRYING. PT STATED THAT HE IS FEELING ALOT BETTER. DENIES ANY SUICIDAL FEELINGS. DENIES ANY SENSORY DISTURBANCE & NONE IS EVIDENT. NO DELUSIONS VOICED. ALERT & ORIENTED X4. ATE HS SNACK. COMPLIANT WITH ALL HS MEDICATIONS. MOVES INDEPENDENTLY VIA WHEELCHAIR. SPENT LEISURE TIME IN THE DINING ROOM WATCHING TV WITH APPROPRIATE INTERACTIONS.
--- NOTE | 2018-10-17 06:00 | NUR ---
NORCO HAS BEEN EFFECTIVE TO RELIEVE PTS PAIN HE HAS SLEPT QUIETLY PAST 2229 WITH 1 BRIEF AWAKENING TO GO TO THE BATHROOM.
--- NOTE | 2018-10-17 06:47 | NUR ---
AM BEDSIDE GLUCOSE 221
[2018-10-17 07:36] VITALS: BP 150/80
--- NOTE | 2018-10-17 07:40 | NUR ---
PHYSICAL THERAPY Patient seen this am for therapy visit and was sitting up in his w/c within activity room upon therapist arrival. [facility] staff member present for observation only throughout entire DRAINMAN treatment. Patient was very pleasant and eager to carry on a conversation with therapist. Patient reports no new c/o's and stated he had already done some LE ex in his room prior to coming down. Patient transfers CGA sit to stand at rail and ambulates without AD, SBA, 100'x 2, demonstrating even stride with decreased heel strike. Patient a little unsteady at times during straightline gait due to L side gait deviation secondary to use of L foot surgical shoe. Patient also demonstrated improved steady balance during 90/180 turns without LOB and returned to activity room w/c at table awaiting breakfast under [facility] staff Supervision. Will continue per POC as tolerated, total treatment time 17 minutes. Jairo Campa, DRAINMAN
--- NOTE | 2018-10-17 08:15 | NUR ---
Treatment Plan meeting with Dr. Sun, RN, AT, SW and Trip Rider. Plan for discharge Tuesday. Pt. to return to [facility].
--- NOTE | 2018-10-17 11:14 | NUR ---
PATIENT COMPLAINED OF LEFT FOOT PAIN, RATING 8/10. PRN NORCO 5/325MG GIVEN PO AT THIS TIME.
--- NOTE | 2018-10-17 11:38 | NUR ---
AM GROUP/EXERCISE AND BALL TOSS PT ATTENDED AND PARTICIPATED IN ALL GROUP ACTIVITIES. PT EXHIBITED NO SIGNS OF DEPRESSION, SADNESS OR AGITATION DURING GROUP.
--- NOTE | 2018-10-17 12:14 | NUR ---
PRN NORCO EFFECTIVE. PATIENT STATED "IT WAS VERY BENEFICIAL"
--- NOTE | 2018-10-17 15:35 | NUR ---
PM GROUP/ART AND MEDIATION MUSIC PT ATTENDED AND PARTICIPATED IN ALL GROUP ACTIVITIES. PT EXHIBITED NO SIGNS OF DEPRESSION, AGITATION OR SADNESS. PT WAS ON TASK AND RELAXED. PT IS SET TO BE DISCHARGED TOMORROW.
--- NOTE | 2018-10-17 16:28 | NUR ---
Transportation arranged with [facility] to transport with pick pulling machine tender time 2:00 p.m. Tuesday.
--- NOTE | 2018-10-17 17:22 | NUR ---
PATIENT COMPLAINING OF A HEADACHE, 05/08. PRN TYLENOL 650MG PO GIVEN AT THIS TIME.
--- NOTE | 2018-10-17 18:22 | NUR ---
PRN TYLENOL EFFECTIVE, NO LONGER COMPLAINING OF HEADACHE.
--- NOTE | 2018-10-17 18:27 | NUR ---
PATIENT IS ALERT AND ORIENTED TO PERSON, PLACE, TIME AND SITUATION; ABLE TO VOICE NEEDS. MOOD IS STABLE; ALITTLE SAD BECAUSE OTHER PATIENTS LEFT YESTERDAY. DENIES ANY HALLUCINATIONS, DELUSIONS, HI/SI OR PAIN. 1 PERSON ASSIST, STAND BY ONLY WITH ACTIVITIES OF DAILY LIVING, CONTINENT OF BOWEL AND BLADDER, SET UP FOR MEALS, INTAKES ARE GOOD WITH ADEQUATE. MEDICATION COMPLAINT WITH EDUCATION PROVIDED. Q 15 MINUTE SAFETY CHECKS MAINATINED. CONTINUE TO MONITOR MOOD CHANGES, PROVIDE ONE ON ONE AND REDIRECTION NEEDED.
[2018-10-17 19:58] VITALS: BP 122/59
--- NOTE | 2018-10-17 21:56 | NUR ---
24 HR chart check completed.
--- NOTE | 2018-10-17 22:23 | NUR ---
PT HAS REMAINED RESTING IN HIS ROOM SINCE THE ONSET OF THE SHIFT. STATED THAT HE IS FEELING BETTER BUT IS JUST TIRED. ALERT & ORIENTED X4. DENIES ANY SUICIDAL FEELINGS. DENIES ANY SENSORY DISTURBANCE & NONE IS EVIDENT. COMPLIANT WITH HS MEDICATIONS.
--- NOTE | 2018-10-18 05:19 | NUR ---
PT HAS SLEPT QUIETLY THROUGHOUT THE SHIFT PAST 2114 WITH 2 BRIEF AWAKENINGS TO GO TO THE BATHROOM. CONTINENT OF URINE.
--- NOTE | 2018-10-18 06:36 | NUR ---
AM BEDSIDE GLUCOSE 150
--- NOTE | 2018-10-18 07:45 | NUR ---
PT AWAKE, ALERT, UP FOR BREAKFAST IN DINING ROOM WITH PEERS AT THIS TIME.
[2018-10-18 08:10] VITALS: BP 130/70
--- NOTE | 2018-10-18 08:19 | NUR ---
PRN NORCO ONE TAB PO GIVEN AT THIS TIME PER PT REQUEST FOR C/O LEFT FOOT PAIN RATED LEVEL 8/10, UNRELIEVED BY NONPHARMALOGICAL MEASURES, WILL MONITOR FOR EFFECTIVENESS OF PRN INTERVENTION.
--- NOTE | 2018-10-18 08:40 | NUR ---
PHYSICAL THERAPY Patient seen this am for therapy visit and was sitting in activity room w/c upon therapist arrival. Patient voices no new c/o's as [facility] staff member was present for observation only during COOK SOUP treatment. Patient was also very pleasant interacting with therapist this morning, transfering sit to stand SBA and ambulating without AD, 150'x 2, SBA, while demonstrating smoother gait pattern, increased B arm swing and no LOB this session. Patient returned to w/c in activity room and remained under [facility] staff Supervision. Will continue per POC as tolerated, total treatment time 18 minutes. Jairo Campa, COOK SOUP
--- NOTE | 2018-10-18 09:30 | NUR ---
PRN NORCO EFFECIVE, PT VOICES NO FURTHER COMPLAINTS OF PAIN/DISCOMFORT.
--- NOTE | 2018-10-18 10:36 | NUR ---
P- STABLE MOOD, PT PREPARING FOR DISCHARGE TODAY BACK TO [facility]. I- ORIENTATION, MOOD AND BEHAVIOR ASSESSED. ASSESSED PT FOR SI/HI, INTENT OR PLAN. ASSESSED PT FOR S/S HALLUCINATIONS, PARANOIA AND/OR DELUSIONS. MEDICATIONS ADMINISTERED PER PHYSICIAN'S ORDERS. ENCOURAGED PT TO ATTEND AND PARTICIPATE IN JIMÉNE[facility] MILIEU GROUPS AND ACTIVITIES. R- PT IS ALERT AND ORIENTED X4. MEMORY APPEARS TO BE INTACT. RESPS EASY AND EVEN ON ROOM AIR. MOOD IS STABLE, AFFECT IS APPROPRIATE. SPEECH IS WNL AND COHERENT, ABLE TO MAKE NEEDS KNOWN WITHOUT DIFFICULTY. PT DENIES SI/HI, INTENT OR PLAN. PT DENIES HALLUCINATIONS, NO RESPONSE TO INTERNAL STIMULI NOTED. NO PARANOIA/DELUSIONS NOTED. PT IS MEDICATION COMPLIANT WITHOUT DIFFICULTY. PT IS CALM, PLEASANT AND COOPERATIVE. INTERACTIVE WITH STAFF AND PEERS. PT CURRENTLY ATTENDING MORNING GROUP. P- PLAN TO CONTINUE CURRENT TREATMENT, ASSIST PT IN PREPARING FOR DISCHARGE SCHEDULED FOR TODAY AT 2PM BACK TO [facility].
--- NOTE | 2018-10-18 10:44 | NUR ---
PHYSICAL THERAPY CO-SIGN I approve of the Phyical Therapy notes written above. MIMI DOWNS PT
--- NOTE | 2018-10-18 11:46 | NUR ---
AM GROUP/LIGHT THERAPY AND FOCUS GROUP PT ATTENDED AND PARTICIPATED IN ALL GROUP ACTIVITIES. PT HAS GREAT INSIGHT TO HIS ILLNESS AND HAS AN UNDERSTANDING OF COPING STRATEGIES AND APPLYING THEM TO HIS LIFE. PT WILL BE DISCHARGED FROM THE UNIT AND STATES, "I FEEL SO MUCH BETTER AND AM LOOKING FORWARD TO GOING."
--- NOTE | 2018-10-18 11:50 | NUR ---
DASHA DIET TECHNICIAN REGISTERED ON UNIT TO SEE PT AT THIS TIME, AWARE OF DISCHARGE FOR TODAY AROUND 2PM.
[2018-10-18] MEDS ORDERED: HYDROCODONE-AC1 EAC1 PO (12:01)
--- NOTE | 2018-10-18 12:13 | NUR ---
ON UNIT TO SEE PT AT THIS TIME, UPDATE GIVEN.
--- NOTE | 2018-10-18 12:33 | NUR ---
Pt was offered support and encouragement as well as discussed discharge plan and pt stated he was a little nervous which was normalized. Pt thanked this health underwriter and appeared content.
[2018-10-18] MEDS ORDERED: OLANZAPINE5 MG PO (12:42)
[2018-10-18] MEDS ORDERED: CLOMIPRAMINE HC25 MG PO (12:42)
[2018-10-18] MEDS ORDERED: HYDROXYZINE PAM25 M1 PO (12:42)
[2018-10-18] MEDS ORDERED: CLONAZEPAM0.5 M2 PO (12:42)
[2018-10-18] MEDS ORDERED: ZYPREXA2.5 MG PO (12:42)
--- NOTE | 2018-10-18 13:00 | NUR ---
PODIATRY PHYSICIANS ON UNIT TO ASSESS PT AT THIS TIME. AWARE PT IS DISCHARGING BACK TO NURSING FACILITY. STATES OK FOR PT TO FOLLOW UP WITH THEIR PODIATRY TEAM PER PROTOCOL.
--- NOTE | 2018-10-18 13:01 | NUR ---
NURSE TO NURSE REPORT GIVEN TO MIGDALIA AT [facility]. DISCHARGE ORDERS FAXED PER REQUEST.
--- NOTE | 2018-10-18 14:12 | NUR ---
PT DISCHARGED AT THIS TIME BACK TO [facility] VIA [facility] SERVICE STRETCHER WITH 2 RESTAURANT ASSISTANT MANAGER. ALL PERSONAL BELONGINGS WERE SENT WITH THE PT INCLUDING LOCK BOX ITEMS AND WHEELCHAIR CUSHION. ALL DISCHARGE INSTRUCTIONS WERE REVIEWED WITH THE PT PRIOR TO DISCHARGE WITH PT'S STATED AND WRITTEN UNDERSTANDING OF ALL. PT LEFT THE UNIT IN STABLE CONDITION AT 1412 VIA [facility] WITH PARTITION MAKING MACHINE OPERATOR.
== END 2018-10-18 14:12 | DRG 885 ==
LOC: 3N 14:46
PROVIDERS: Internal Medicine; Internal Medicine Nephrology; ADMIT Psychiatry & Neurology Psychiatry
DX: F33.2 Major depressive disorder, recurrent severe without psychotic features (principal); I82.412 Acute embolism and thrombosis of left femoral vein; F25.9 Schizoaffective disorder, unspecified; E11.621 Type 2 diabetes mellitus with foot ulcer; L97.529 Non-pressure chronic ulcer of other part of left foot with unspecified severity; F42.9 Obsessive-compulsive disorder, unspecified; F34.1 Dysthymic disorder; E11.42 Type 2 diabetes mellitus with diabetic polyneuropathy; K21.9 Gastro-esophageal reflux disease without esophagitis; I48.0 Paroxysmal atrial fibrillation; G89.29 Other chronic pain; M54.9 Dorsalgia, unspecified; L89.892 Pressure ulcer of other site, stage 2; F41.9 Anxiety disorder, unspecified; E78.5 Hyperlipidemia, unspecified; E11.22 Type 2 diabetes mellitus with diabetic chronic kidney disease; N18.3 Chronic kidney disease, stage 3 (moderate); I87.2 Venous insufficiency (chronic) (peripheral); I12.9 Hypertensive chronic kidney disease with stage 1 through stage 4 chronic kidney disease, or unspecified chronic kidney disease; E66.09 Other obesity due to excess calories; Z68.30 Body mass index [BMI] 30.0-30.9, adult; Z87.891 Personal history of nicotine dependence; Z80.0 Family history of malignant neoplasm of digestive organs; Z81.8 Family history of other mental and behavioral disorders; Z79.899 Other long term (current) drug therapy; Z79.01 Long term (current) use of anticoagulants